=== PATIENT | female | born 1955 | race Two or more races ===

== ENCOUNTER 2018-08-29 18:51 | Emergency (ER) | payer OTHER ==
[~2018-08-29] VITALS: Ht 152.4 cm; Wt 79.4 kg
[2018-08-29] MEDS ORDERED: LISI1TAB13 PO (19:06)
[2018-08-29] MEDS ORDERED: METF-440 PO (19:06)
[2018-08-29] MEDS ORDERED: ASPIRIN 325 MG TABLET PO ONE (19:45)
[2018-08-29] MEDS ORDERED: OXYCODONE/APAP 5-325 MG TABLET PO ONE (19:45)
[2018-08-29] MEDS ORDERED: ASPIRIN 81 MG TAB.CHEW ONE (19:56)
[2018-08-29] MEDS ORDERED: OXYCODONE/APAP 5-325 MG TABLET ONE (19:56)
[2018-08-29] MEDS ORDERED: ASPIRIN 325 MG TABLET ONE (20:05)
--- NOTE | 2018-08-29 20:05 | NUR ---
Patient discharged to home in stable conditon. Written and verbal after care instructions given. Patient verbalizes understanding of instructions.
[2018-08-29 21:15] VITALS: BP 126/71
== END 2018-08-29 20:05 | disposition home or self-care (01) ==
LOC: ER 18:55
DX: E11.40 Type 2 diabetes mellitus with diabetic neuropathy, unspecified (principal); I10 Essential (primary) hypertension; Z79.899 Other long term (current) drug therapy
CPT/HCPCS: 73090; 73130; A4663